=== PATIENT | male | born 1985 | race Caucasian/White ===

== ENCOUNTER → 2023-07-25 | Outpatient (REF) | payer OTHER | LOC: M LAB REF 16:10 | PROVIDERS: ATTEND Nurse Practitioner Family | DX: L03.211 Cellulitis of face (principal) ==

== ENCOUNTER 2023-07-31 16:05 | Emergency (ER) | payer OTHER ==
[~2023-07-31] VITALS: Ht 182.9 cm; Wt 85.2 kg
[2023-07-31] MEDS ORDERED: BACTDSTA (16:37)
[2023-07-31 19:18] VITALS: BP 131/85; TEMP 98.2; O2SAT 97
== END 2023-07-31 19:19 | disposition home or self-care (01) ==
LOC: M ED 16:05
DX: S80.11XA Contusion of right lower leg, initial encounter (principal); V49.40XA Driver injured in collision with unspecified motor vehicles in traffic accident, initial encounter; Y92.9 Unspecified place or not applicable; Y93.9 Activity, unspecified; Y99.9 Unspecified external cause status; M25.512 Pain in left shoulder; Z79.899 Other long term (current) drug therapy